=== PATIENT | female | born 1980 | race Native Hawaiian/Other Pacific Islander ===

== ENCOUNTER 2016-12-25 11:49 | Emergency (ER) | payer OTHER ==
[~2016-12-25] VITALS: Ht 165.1 cm; Wt 113.4 kg
[~2016-12-25 11:49] MED LIST: AMOX500C85 PO; CETI10TA PO; CLINDAMYCIN150 MG OR; CLONAZEP ODT1 MG OR; CYCL10TA35 PO; FLUC100T3 PO; FLUT0.05 NAS; GABA100C2 PO; HYDR-2748 PO; KETOROLAC15 MG/ML IJ; LISI20TA11 PO; LISI20TA24 PO; LORA10TA3 PO; METHYLPR SS125 MG IJ; MOBIC15 MG PO; NYSTATIN100000 MG PO; PERIDEX0.12 % MT; PROAIR HFA IN; ROPINIROLE0.5 MG OR; TIZA4TAB5 PO; Z-PAK PO; ZOLP10TA2 PO
[2016-12-25] MEDS ORDERED: [UNRECOGNIZED DRUG - CODE] PO (12:10)
[2016-12-25] MEDS ORDERED: CLIN300C PO (12:11)
[2016-12-25] MEDS ORDERED: PRED10TA27 PO (12:12)
[2016-12-25] MEDS ORDERED: BENADRYL ALLERG25 MG OR (12:13)
[2016-12-25] MEDS ORDERED: BENZ1TAB43 PO (12:13)
[2016-12-25] MEDS ORDERED: LITH300C3 PO (12:14)
[2016-12-25] MEDS ORDERED: RISP2TAB2 PO (12:15)
[2016-12-25] MEDS ORDERED: LITHIUM CARB450 MG PO (12:16)
[2016-12-25] MEDS ORDERED: COLACE CLEAR50 MG PO (12:17)
[2016-12-25 12:43] LABS: PLATELET COUNT 325 K/uL (152-353)
[2016-12-25 12:50] LABS: POTASSIUM 4.2 mmol/L (3.6-5.2); SODIUM 137 mmol/L (136-145)
[2016-12-25 14:34] VITALS: BP 129/88; TEMP 97.1
== END 2016-12-25 14:41 | disposition home or self-care (01) ==
LOC: ED 11:49
PROVIDERS: Emergency Medicine
DX: H49.22 Sixth [abducent] nerve palsy, left eye (principal); H55.89 Other irregular eye movements
CPT/HCPCS: 80053; 83036; 84443; 85027; 86140; 99284

== ENCOUNTER 2018-01-24 00:49 | Emergency (ER) | payer OTHER ==
[~2018-01-24] VITALS: Ht 165.1 cm; Wt 81.6 kg
[~2018-01-24 00:49] MED LIST changes: +BENADRYL ALLERG25 MG OR; +BENZ1TAB43 PO; +CLIN300C PO; +COLACE CLEAR50 MG PO; +LITH300C3 PO; +LITHIUM CARB450 MG PO; +PRED10TA27 PO; +RISP2TAB2 PO; +[UNRECOGNIZED DRUG - CODE] PO
[2018-01-24 01:15] VITALS: BP 114/69; TEMP 97.5
[2018-01-24 01:54] LABS: PLATELET COUNT 318 K/uL (152-353)
[2018-01-24 02:16] LABS: POTASSIUM 2.6 mmol/L (3.6-5.2)
== END 2018-01-24 02:50 | disposition home or self-care (01) ==
LOC: ED 00:49
DX: R22.0 Localized swelling, mass and lump, head (principal)
CPT/HCPCS: 36415; 80053; 85027; 87081; 87880; 99283

== ENCOUNTER 2018-03-15 13:06 | Outpatient (CLI) | payer OTHER ==
[2018-03-16] MEDS ORDERED: HYDR10TA47A PO (11:37)
[2018-03-16] MEDS ORDERED: LORA1TAB17 PO (11:37)
[2018-03-16] MEDS ORDERED: TRIA37.541 PO (11:40)
[2018-03-16] MEDS ORDERED: LITHIUM CARB300 MG PO (11:42)
[2018-03-16] MEDS ORDERED: KLOR-CON M2020 MEQ PO (11:43)
== END 2018-03-15 13:10 | disposition short-term general hospital (02) ==
LOC: AMB 13:06
DX: R41.82 Altered mental status, unspecified (principal); G40.89 Other seizures
CPT/HCPCS: A0425; A0427

== ENCOUNTER 2018-03-15 13:13 | Inpatient (IN) | payer OTHER ==
[2018-03-15] VITALS (11 sets, daily range): BP systolic 101–130; BP diastolic 65–105; TEMP 97.9–98.6
[~2018-03-15] VITALS: Ht 165.1 cm; Wt 78.1 kg
[2018-03-15 13:42] LABS: PLATELET COUNT 418 K/uL (152-353)
[2018-03-15 13:48] LABS: POTASSIUM 3.7 mmol/L (3.6-5.2)
[2018-03-16] VITALS (13 sets, daily range): BP systolic 94–143; BP diastolic 14–90; TEMP 98–98.2; Ht 165.1 cm; Wt 78.1 kg
[2018-03-16 06:44] LABS: PLATELET COUNT 255 K/uL (152-353)
[2018-03-16 07:26] LABS: POTASSIUM 3.4 mmol/L (3.6-5.2)
[2018-03-16] MEDS ORDERED: HYDR10TA47A PO (11:37)
[2018-03-16] MEDS ORDERED: LORA1TAB17 PO (11:37)
[2018-03-16] MEDS ORDERED: TRIA37.541 PO (11:40)
[2018-03-16] MEDS ORDERED: LITHIUM CARB300 MG PO (11:42)
[2018-03-16] MEDS ORDERED: KLOR-CON M2020 MEQ PO (11:43)
== END 2018-03-16 14:03 | disposition short-term general hospital (02) | DRG 918 ==
LOC: ED 13:13 → ICU 23:30
PROVIDERS: Emergency Medicine
DX: T50.991A Poisoning by other drugs, medicaments and biological substances, accidental (unintentional), initial encounter (principal); N39.0 Urinary tract infection, site not specified; Y92.89 Other specified places as the place of occurrence of the external cause; D72.828 Other elevated white blood cell count; F19.10 Other psychoactive substance abuse, uncomplicated
CPT/HCPCS: 80053; 80307; 80320; 80329; 81000; 83605; 85027; 87088; 93005; 96361; 96365; 96372; 99284; J0696; J0744; J2060; J3486; J3490; J7120

== ENCOUNTER 2018-05-21 12:02 | Emergency (ER) | payer OTHER ==
[~2018-05-21] VITALS: Ht 165.1 cm; Wt 78.0 kg
[~2018-05-21 12:02] MED LIST changes: +HYDR10TA47A PO; +KLOR-CON M2020 MEQ PO; +LITHIUM CARB300 MG PO; +LORA1TAB17 PO; +TRIA37.541 PO
[2018-05-21 12:09] VITALS: BP 146/93; TEMP 97.8
== END 2018-05-21 13:00 | disposition home or self-care (01) ==
LOC: ED 12:02
DX: R56.9 Unspecified convulsions (principal); F43.10 Post-traumatic stress disorder, unspecified
CPT/HCPCS: 99281

== ENCOUNTER 2019-03-08 13:33 | Emergency (ER) | payer OTHER ==
[~2019-03-08] VITALS: Ht 165.1 cm; Wt 79.8 kg
[2019-03-08 13:33] VITALS: TEMP 98.3
[2019-03-08 14:14] LABS: PLATELET COUNT 258 K/uL (152-353)
[2019-03-08 14:18] LABS: POTASSIUM 3.9 mmol/L (3.6-5.2)
[2019-03-08 16:30] VITALS: BP 152/71
== END 2019-03-08 17:08 ==
LOC: ED 13:33
PROVIDERS: Family Medicine
DX: A59.9 Trichomoniasis, unspecified (principal); N39.0 Urinary tract infection, site not specified; R10.9 Unspecified abdominal pain
CPT/HCPCS: 80053; 80307; 81000; 81025; 82150; 83690; 85027; 96374; 99284; J1885; Q9963

== ENCOUNTER 2021-03-27 15:30 | Emergency (ER) | payer OTHER ==
[~2021-03-27] VITALS: Ht 165.1 cm; Wt 77.1 kg
[2021-03-27 16:33] LABS: PLATELET COUNT 252 K/uL (152-353)
[2021-03-27 16:54] LABS: POTASSIUM 3.9 mmol/L (3.6-5.2)
[2021-03-27 20:56] VITALS: BP 133/64; TEMP 97.8
== END 2021-03-27 20:56 | disposition home or self-care (01) ==
LOC: ED 15:35
PROVIDERS: Hospitalist
DX: F31.89 Other bipolar disorder (principal); F32.89 Other specified depressive episodes; F19.10 Other psychoactive substance abuse, uncomplicated; Z20.822 Contact with and (suspected) exposure to COVID-19
CPT/HCPCS: 80053; 80307; 80320; 80329; 81000; 81025; 85027; 87635; 99285; U0003